=== PATIENT | male | born 1990 | race African-American/Black ===

== ENCOUNTER 2024-05-28 13:40 | Emergency (ER) | payer SELFPAY ==
[2024-05-28] MEDS ORDERED: LIDOCAINE 1% 20 ML MDV ONE (14:09)
[2024-05-28] MEDS ORDERED: TDAP (DIPHTH,PERTUSS(ACELL),TET VAC) 0.5 ML VIAL IMVAC ONE (14:09)
[2024-05-28] MEDS ORDERED: HYDROCODONE/APAP 7.5/325 MG TAB ONE (14:09)
--- NOTE | 2024-05-28 14:46 | EDPHYS ---
Physician Documentation [facility] Name: Davian Stanley Age: 33 yrs Sex: Male : 1990 Arrival Date: 05/28/2024 Time: 13:40 Bed 13 Private MD: ED Physician Brian Palm HPI: 05/28 13:50 This 33 yrs old Black Male presents to ER via Unassigned with complaints of Laceration sb4 To Hand - left. 13:50 The patient has a laceration related to: cooking, from a knife, occurred at work, and sb4 there are no complicating factors. The injury was accidental. The laceration(s) is(are) located on the heel of left hand. Onset: The symptoms/episode began/occurred just prior to arrival. Associated signs and symptoms: The patient has no apparent associated signs or symptoms. The patient has not experienced similar symptoms in the past. Historical: - Allergies: 13:52 No Known Allergies; ll1 - Home Meds: 13:52 None [Active]; ll1 - PMHx: 13:52 None; ll1 - PSHx: 13:52 None; ll1 - Immunization history:: Adult Immunizations up to date. - Social history:: Smoking status: Patient denies any tobacco usage or history of. Smoking status: Reported history of juuling and/or vaping. ROS: 13:50 Constitutional: Negative for fever, chills, and weight loss, sb4 13:50 Skin: Positive for laceration(s), of the heel of left hand, 13:50 All other systems are negative, Exam: 13:50 Constitutional: This is a well developed, well nourished patient who is awake, alert, sb4 and in no acute distress. Head/Face: Normocephalic, atraumatic. Eyes: Extra-ocular motions intact. Periorbital areas with no swelling, redness, or edema. ENT: Mucous membranes moist. Respiratory: No increased work of breathing, no retractions or nasal flaring. 13:50 Skin: injury, laceration(s), the wound is approximately 4 cm(s), with a depth of .5 cm(s), of the heel of left hand, that can be described as clean, no foreign body, linear, with mild bleeding, Vital Signs: 13:51 Resp 17; Temp 97.1; Pulse Ox 100% ; Weight 70.31 kg; Height 5 ft. 10 in. ; Pain 8/10; ll1 14:15 BP 151 / 100; Pulse 89; iw 13:51 Body Mass Index 22.24 (70.31 kg, 177.8 cm) ll1 13:51 Pain Scale: Adult ll1 Laceration: 14:44 Wound Repair of 5cm ( 2.0in ) subcutaneous laceration to left hand. Distal sb4 neuro/vascular/tendon intact. Anesthesia: Local anesthetic administered with 5 mls of 1% lidocaine. Wound prep: Simple cleansing with hibiclenz by me, Wound irrigation with saline by me, Wound explored, Copious irrigation. Skin closed with 5 5-0 Prolene using simple sutures and sterile technique. Dressed with pressure dressing. Patient tolerated well. MDM: 13:43 Medical Screening Exam initiated sb4 14:44 Data reviewed: vital signs, nurses notes, and as a result, I will discharge patient. sb4 Counseling: I had a detailed discussion with the patient and/or guardian regarding the historical points, exam findings, and any diagnostic results supporting the discharge/admit diagnosis, the presence of at least one elevated blood pressure reading (>120/80) during this emergency department visit, the need for outpatient follow up, in 10 days for suture removal, to return to the emergency department if symptoms worsen or persist or if there are any questions or concerns that arise at home. 05/28 13:48 Order name: Wound Care; Complete Time: 15:12 sb4 05/28 14:44 Order name: Wound dressing; Complete Time: 15:12 sb4 Administered Medications: 14:14 Drug: Boostrix Tdap IM 0.5 ml IM once; as a single dose Route: IM; Site: right deltoid; iw 14:15 Drug: Hydrocodone-Acetaminophen PO (7.5 mg-325 mg) 1 tabs PO once Route: PO; iw 15:00 Drug: Lidocaine Infiltration (1 %) 20 ml 20 ml Infiltration once; to bedside Volume: 20 sb4 ml; Route: Infiltration; Disposition: 15:57 Co-signature as Attending Physician, Brian Palm MD I reviewed the patient's care rt provided by the Advanced Practice Provider and agree with the diagnosis and treatment plan. Disposition Summary: 02/13/25 14:46 Discharge Ordered Notes: Location: Home sb4 Problem: new sb4 Symptoms: have improved sb4 Condition: Stable sb4 Diagnosis - Laceration without foreign body of left hand, initial encounter sb4 Followup: sb4 - With: Private Physician - When: 7 - 10 days - Reason: Staple/Suture removal Discharge Instructions: - Discharge Summary Sheet sb4 - Laceration Care, Adult sb4 Forms: - Patient Portal Instructions sb4 - Leadership Thank You Letter sb4 Signatures: Ebony Perry RN RN iw Kirsten Sagastume RN RN ll1 Myriam Villanueva PABasliC PAAurelia sb4 Brian Palm MD MD rt
--- NOTE | 2024-05-28 14:46 | ER ---
Nurse's Notes [facility] Name: Davian Stanley Age: 33 yrs Sex: Male : 1990 Arrival Date: 05/28/2024 Time: 13:40 Bed 13 Private MD: Diagnosis: Laceration without foreign body of left hand, initial encounter Presentation: 05/28 13:51 Chief complaint: Patient states: Accidentally cut L wrist area with sharp knife just ll1 [employer]. Bleeding controlled, small dressing in place. Coronavirus screen: Client denies travel out of the [place] in the last 14 days. At this time, the client does not indicate any symptoms associated with coronavirus-19. Ebola Screen: Patient denies travel to an Ebola-affected area in the 21 days before illness onset. Complicating Factors: There are no complicating factors for this patient. Initial Sepsis Screen: Does the patient meet any 2 criteria? No. Patient's initial sepsis screen is negative. Does the patient have a suspected source of infection? No. Patient's initial sepsis screen is negative. Risk Assessment: Do you want to hurt yourself or someone else? Patient reports no desire to harm self or others. Onset of symptoms was May 28, 2024. 13:51 Method Of Arrival: Ambulatory ll1 13:51 Acuity: JESU 4 ll1 Historical: - Allergies: 13:52 No Known Allergies; ll1 - Home Meds: 13:52 None [Active]; ll1 - PMHx: 13:52 None; ll1 - PSHx: 13:52 None; ll1 - Immunization history:: Adult Immunizations up to date. - Social history:: Smoking status: Patient denies any tobacco usage or history of. Smoking status: Reported history of juuling and/or vaping. Screenin:16 [facility] ED Fall Risk Assessment (Adult) History of falling in the last 3 months, iw including since admission No falls in past 3 months (0 pts) Confusion or Disorientation No (0 pts) Intoxicated or Sedated No (0 pts) Impaired Gait No (0 pts) Mobility Assist Device Used No (0 pt) Altered Elimination No (0 pt) Score/Fall Risk Level 0 - 2 = Low Risk Oriented to surroundings, Maintained a safe environment. Abuse screen: Denies threats or abuse. Nutritional screening: No deficits noted. Tuberculosis screening: No symptoms or risk factors identified. Assessment: 14:15 General: Appears in no apparent distress. Behavior is calm, cooperative. Pain: iw Complains of pain in left hand and heel of left hand. Neuro: Level of Consciousness is awake, alert, obeys commands, Oriented to person, place, time, situation, Moves all extremities. Derm: Skin is intact. Musculoskeletal: Range of motion: limited in left wrist. Injury Description: Laceration sustained to left wrist is 0.5 to 2.5 cm long, is bleeding a small amount. Vital Signs: 13:51 Resp 17; Temp 97.1; Pulse Ox 100% ; Weight 70.31 kg; Height 5 ft. 10 in. ; Pain 8/10; ll1 14:15 BP 151 / 100; Pulse 89; iw 13:51 Body Mass Index 22.24 (70.31 kg, 177.8 cm) ll1 13:51 Pain Scale: Adult ll1 ED Course: 13:42 Patient arrived in ED. im 13:42 Myriam Villanueva PA-C is PHCP. sb4 13:42 Brian Palm MD is Attending Physician. sb4 13:43 Eva Hawley, JESUS is Primary Nurse. hb 13:52 Triage completed. ll1 13:52 Arm band placed on Patient placed in an exam room, on a stretcher. ll1 15:12 Assist provider with laceration repair on left wrist that was 2.5 cm. or less using iw sutures. Set up tray. Performed by yMriam Villanueva PA-C Dressed with 4X4s, Francis Fontaine, Patient tolerated well. Patient did not have IV access during this emergency room visit. 15:13 Patient has correct armband on for positive identification. iw Administered Medications: 14:14 Drug: Boostrix Tdap IM 0.5 ml IM once; as a single dose Route: IM; Site: right deltoid; iw 14:15 Drug: Hydrocodone-Acetaminophen PO (7.5 mg-325 mg) 1 tabs PO once Route: PO; iw 15:00 Drug: Lidocaine Infiltration (1 %) 20 ml 20 ml Infiltration once; to bedside Volume: 20 sb4 ml; Route: Infiltration; Medication: 15:13 Vaccine Information Statement (VIS) provided today. Questions and/or concerns iw addressed. VIS edition date: November 2020. Outcome: 14:46 Discharge ordered by MD. martinez 15:12 Discharged to home ambulatory, with family, 15:12 Condition: good 15:12 Discharge instructions given to patient, Instructed on discharge instructions, follow up and referral plans. medication usage, Demonstrated understanding of instructions, follow-up care, medications, Prescriptions given X 1, 15:13 Patient left the ED. iw Signatures: Ebony Perry RN RN iw Eva Hawley RN RN hb Lewis, Lynsay, RN RN [facility] Myriam Villanueva PA-C PA-Marcia Bruno
[2024-05-28 15:17] VITALS: TEMP 97.1; O2SAT 100
[2024-05-28 15:18] VITALS: BP 151/100
== END 2024-05-28 15:13 | disposition home or self-care (01) ==
LOC: ER 13:40
DX: S61.412A Laceration without foreign body of left hand, initial encounter (principal); W26.0XXA Contact with knife, initial encounter; Y93.G3 Activity, cooking and baking; Y99.0 Civilian activity done for income or pay
CPT/HCPCS: 12042; 96372; 99284; J2003

== ENCOUNTER 2024-06-10 15:44 | Emergency (ER) | payer SELFPAY ==
--- OUTSIDE RECORDS SUMMARY | 2024-06-10 15:48 | XMS REPORT | Continuity of Care Document ---
Author Name Unknown Address [address] [place] [address] [facility] thconnect Address [address] [place] [address] Care Team Providers Care Billing Assistant Name Role Phone PCP, PATIENT DOES NOT HAVE A Primary Care Physic corrina Unavailable Hanny GUZMÁN Attending Clinician Unavailable Hanny GUZMÁN Attending Clinician Unavailable Hanny Joiner Attending Clinician [phone] Allergies, Adverse Reactions, Alerts Allergy Name Allergy Type Status Severity Reaction(s) Onset Date Inactive Date Treating Clinician Comments Source NO KNOWN ALLERGIE S Drug Class Active [facility] Social History Social Habit Start Date Stop Date Quantity Comments Source Sexual orientation U [facility] Sex assigned at 1990 00:00:00 1990 00:00:00 [facility] Smoking Status Start Date Stop Date Source Tobacco smoking consumption unknown [facility] Vital Signs Vital Name Observation Time Observation Value Comments S marie Systolic blood pressure 2023-11-18 23:00:00 110 mm[Hg] [facility] Diastolic blood pressure 2023-11-18 23:00:00 69 mm[Hg] [facility] Heart rate 2023-11-18 23:00:00 66 /min [facility] Respiratory rate 2023-11-18 23:00:00 16 /min [facility] Oxygen saturation in Arterial blood by Pulse oximetry 2023-11-18 23:00:00 100 /min [facility] Body temperature 2023-11-18 21:16:00 36.72 Corazon [facility] Body height 2023-11-18 21:16:00 180.3 cm [facility] Body weight 2023-11-18 21:16:00 65.772 kg [facility] BMI 2023-11-18 21:16:00 20.22 kg/m2 [facility] Encounters Start Date/Time End Date/Time Encounter Type Admission Type Attending [facility] Care Facility Care Department Encounter ID Source 2023-11-18 16:17:00 2023-11-18 18:04:00 Emergency X Hanny GUZMÁN RAMIREZ Hanny [facility] ERT [id number] [facility] 2023-11-18 16:17:00 2023-11-18 18:04:00 Emergency Hanny Guzmán Sandra [facility] [id number] [facility] Notes Date/Time Note Provider Source 2023-11-18 18:03:49 Patient discharge home. NO more bleeding at this time. Signed paper work. [facility] Mauricio Batista RN [facility] 2023-11-18 16:16:00 CC: patient presents to the ER with complaints of nosebleeds that began yesterday morning. Denies drug use. Awake, alert, oriented, resp reg unlabored, skin warm and dry, color appropriate for race, moves all ext without difficulty, amb without assistance. Appears in no distress. [facility]
--- NOTE | 2024-06-10 16:03 | EDPHYS ---
Physician Documentation [facility] Name: Davian Stanley Age: 33 yrs Sex: Male : 1990 Arrival Date: 06/10/2024 Time: 15:44 Bed IW1 Private MD: ED Physician Theodore Turcios HPI: 06/10 16:02 This 33 yrs old Black Male presents to ER via Unassigned with complaints of Suture kb Removal. 16:02 Pt is a 33 year old male who presents to have sutures removed from left hand. Sutures kb were placed 13 days ago. Denies any swelling, drainage, pain, fever. Historical: - Allergies: 16:15 No Known Allergies; db - Immunization history:: Adult Immunizations unknown. - Infectious Disease History:: Denies. - Social history:: Smoking status: unknown. ROS: 16:02 Constitutional: As per HPI kb Exam: 16:02 Constitutional: This is a well developed, well nourished patient who is awake, alert, kb and in no acute distress. Head/Face: Normocephalic, atraumatic. ENT: Moist Mucous membranes Respiratory: Respirations even and unlabored. No increased work of breathing. Talking in full sentences MS/ Extremity: Pulses equal, no cyanosis. Neurovascular intact. Full, normal range of motion. Neuro: Awake and alert, GCS 15, oriented to person, place, time, and situation. 16:02 Skin: Wound recheck: Suture laceration closure: the wound is healing well, the edges are well approximated, no evidence of dehiscence, no drainage, no erythema, no swelling, Vital Signs: 16:04 BP 124 / 63; Pulse 68; Resp 18; Temp 97.8; Pulse Ox 98% ; Weight 70.31 kg; Height 5 ft. db 11 in. ; 16:04 Body Mass Index 21.62 (70.31 kg, 180.34 cm) db Procedures: 16:01 Suture/Staple removal: Removed 5 sutures, from heel of left hand, site appears well kb healed, dressed with steristrips. Patient tolerated well. MDM: 15:52 Medical Screening Exam initiated kb 16:01 Data reviewed: vital signs, nurses notes. Historians other than the Patient: deonna Spouse/Significant Other: spouse. Counseling: I had a detailed discussion with the patient and/or guardian regarding the historical points, exam findings, and any diagnostic results supporting the discharge/admit diagnosis, the need for outpatient follow up, a family practitioner, to return to the emergency department if symptoms worsen or persist or if there are any questions or concerns that arise at home. Administered Medications: No medications were administered Disposition: 17:43 Co-signature as Attending Physician, Theodore Turcios MD I reviewed the patient's care rn provided by the Advanced Practice Provider and agree with the diagnosis and treatment plan. Disposition Summary: 06/10/24 16:03 Discharge Ordered Notes: Location: Home kb Condition: Stable kb Diagnosis - Encounter for removal of sutures kb Followup: kb - With: Emergency Department - When: As needed - Reason: Worsening of condition Followup: kb - With: Private Physician - When: 2 - 3 days - Reason: Recheck today's complaints, Continuance of care, Re-evaluation by your physician Discharge Instructions: - Discharge Summary Sheet kb - Suture Removal, Care After kb Forms: - Medication Reconciliation Form kb - Antibiotic Education kb - Prescription Opioid Use kb - Patient Portal Instructions kb - Leadership Thank You Letter kb Signatures: Adriana Del Angel, TUG HAND-C TUG HAND-Theodore Piña MD MD rn Benton, Danielle, RN RN db
--- NOTE | 2024-06-10 16:17 | ER ---
Nurse's Notes [facility] Name: Davian Stanley Age: 33 yrs Sex: Male : 1990 Arrival Date: 06/10/2024 Time: 15:44 Bed IW1 Private MD: Diagnosis: Encounter for removal of sutures Presentation: 06/10 16:02 Initial Sepsis Screen: Does the patient meet any 2 criteria? No. Patient's initial db sepsis screen is negative. Does the patient have a suspected source of infection? No. Patient's initial sepsis screen is negative. Risk Assessment: Do you want to hurt yourself or someone else? Patient reports no desire to harm self or others. Onset of symptoms was June 10, 2024. 16:02 Acuity: JESU 5 db 16:04 Chief complaint: Patient states: LEFT HAND SUTURE REMOVAL. SUTURES INTACT NO REDNESS. db Coronavirus screen: Client denies travel out of the [place] in the last 14 days. At this time, the client does not indicate any symptoms associated with coronavirus-19. Ebola Screen: Patient negative for fever greater than or equal to 101.5 degrees Fahrenheit, and additional compatible Ebola Virus Disease symptoms Patient denies exposure to infectious person. Patient denies travel to an Ebola-affected area in the 21 days before illness onset. No symptoms or risks identified at this time. 16:04 Method Of Arrival: Ambulatory db Triage Assessment: 16:02 General: Appears in no apparent distress. comfortable, Behavior is calm, cooperative. db Pain: Denies pain. Historical: - Allergies: 16:15 No Known Allergies; db - Immunization history:: Adult Immunizations unknown. - Infectious Disease History:: Denies. - Social history:: Smoking status: unknown. Screenin:15 [facility] ED Fall Risk Assessment (Adult) History of falling in the last 3 months, db including since admission No falls in past 3 months (0 pts) Confusion or Disorientation No (0 pts) Intoxicated or Sedated No (0 pts) Impaired Gait No (0 pts) Mobility Assist Device Used No (0 pt) Altered Elimination No (0 pt) Score/Fall Risk Level 0 - 2 = Low Risk Oriented to surroundings, Maintained a safe environment. Abuse screen: Denies threats or abuse. Denies injuries from another. Nutritional screening: No deficits noted. Tuberculosis screening: No symptoms or risk factors identified. Assessment: 16:15 Reassessment: Patient appears in no apparent distress at this time. Patient and/or db family updated on plan of care and expected duration. Pain level reassessed. Patient is alert, oriented x 3, equal unlabored respirations, skin warm/dry/pink. General: Appears in no apparent distress. comfortable, Behavior is calm, cooperative. Vital Signs: 16:04 BP 124 / 63; Pulse 68; Resp 18; Temp 97.8; Pulse Ox 98% ; Weight 70.31 kg; Height 5 ft. db 11 in. ; 16:04 Body Mass Index 21.62 (70.31 kg, 180.34 cm) db ED Course: 15:48 Patient arrived in ED. cj3 15:52 Adri[facility] Del [facility] kb 15:52 Theodore Turcios MD is Attending Physician. kb 16:02 Arm band placed on Patient placed in waiting room. db 16:15 Triage completed. db 16:15 Patient has correct armband on for positive identification. Provided Education on: db DISCHARGE . 16:15 No provider procedures requiring assistance completed. Patient did not have IV access db during this emergency room visit. Administered Medications: No medications were administered Medication: 16:15 VIS not applicable for this client. db Outcome: 16:03 Discharge ordered by . kb 16:15 Discharged to home ambulatory, db 16:15 Condition: stable 16:15 Discharge instructions given to patient, Instructed on discharge instructions, follow up and referral plans. 16:16 Patient left the ED. db Signatures: Adriana Del Angel FNP-C FNP-Ckb Benton, Danielle RN RN Hiral Gonzalez cj3
[2024-06-10 16:23] VITALS: BP 124/63; TEMP 97.8; O2SAT 98
== END 2024-06-10 16:16 | disposition home or self-care (01) ==
LOC: ER 15:44
DX: Z48.02 Encounter for removal of sutures (principal)
CPT/HCPCS: 99282